=== PATIENT | male | born 1995 ===

== ENCOUNTER 2018-08-14 20:50 | Emergency (ER) | payer SELFPAY ==
[2018-08-14 21:18] VITALS: BP 122/64; PULSE 69; RESP 19; TEMP 98.4; O2SAT 99
--- NOTE | 2018-08-14 21:28 | ED PDOC ---
HPI: CCC, URI, Sore Throat Time Seen by Provider: 08/14/18 21:16 Chief Complaint (Nursing): Chest Pain Chief Complaint (Provider): Cough, Congestion, Chest Pain History Per: Patient History/Exam Limitations: no limitations Onset/Duration Of Symptoms: Days (x3) Current Symptoms Are (Timing): Still Present Associated Symptoms: Cough, Sputum, Nasal Congestion Additional Complaint(s): 22 year old male presents to the ED with complaining of productive cough and congestion, associated with chest pain for 3 days. Cough is productive of yellow sputum. Otherwise he denies any fever, chills, SOB, nausea, vomiting, dizziness, or other associated symptoms. Patient reports PMHx of asthma, but ran out of inhaler and denies taking any medications for symptom relief prior to arrival. PMD: None Past Medical History Reviewed: Historical Data, Nursing Documentation, Vital Signs Vital Signs: Last Vital Signs Temp 98.4 F 08/14/18 21:16 Pulse 69 08/14/18 21:16 Resp 19 08/14/18 21:16 BP 122/64 08/14/18 21:16 Pulse Ox 99 08/14/18 21:16 - Medical History PMH: Asthma - Family History Family History: States: Unknown Family Hx - Immunization History Hx Tetanus Toxoid Vaccination: No Hx Influenza Vaccination: No Hx Pneumococcal Vaccination: No - Home Medications Home Medications: Ambulatory Orders Medication Instructions Recorded Albuterol HFA [Ventolin HFA 90 2 puff IH [id number] #0 puff 09/11/14 mcg/actuation (8 g)] Albuterol Sulfate [Albuterol 3 ml IH Q4 PRN #30 thom 09/11/14 Sulfate 2.5mg/3 ml 0.083%] Amoxicillin 500 mg PO Q8 #30 cap 02/27/15 Albuterol HFA [Ventolin HFA 90 2 puff IH Q4H #1 puff 08/14/18 mcg/actuation (8 g)] Azithromycin [Zithromax] 250 mg PO DAILY #6 tab 08/14/18 Naproxen [Naprosyn] 500 mg PO Q12H #20 tab 08/14/18 - Allergies Allergies/Adverse Reactions: Allergies Allergy/AdvReac Type Severity Reaction Status Date / Time No Known Allergies Allergy Verified 08/14/18 21:18 Review of Systems ROS Statement: Except As Marked, All Systems Reviewed And Found Negative Constitutional: Negative for: Fever, Chills ENT: Positive for: Nose Congestion Cardiovascular: Positive for: Chest Pain Respiratory: Positive for: Cough, Sputum. Negative for: Shortness of Breath Gastrointestinal: Negative for: Nausea, Vomiting Neurological: Negative for: Weakness, Dizziness Physical Exam - Reviewed Nursing Documentation Reviewed: Yes Vital Signs Reviewed: Yes - Physical Exam Appears: Positive for: Non-toxic, No Acute Distress Head Exam: Positive for: ATRAUMATIC, NORMOCEPHALIC Skin: Positive for: Normal Color, Warm, Dry Eye Exam: Positive for: Normal appearance ENT: Positive for: Nasal Congestion Neck: Positive for: Normal, Painless ROM Cardiovascular/Chest: Positive for: Regular Rate, Rhythm, Chest Non Tender. Negative for: Murmur Respiratory: Positive for: Rhonchi (scattered), Wheezing (scattered). Negative for: Respiratory Distress Pulses-Radial (L): 2+ Pulses-Radial (R): 2+ Gastrointestinal/Abdominal: Positive for: Normal Exam, Soft. Negative for: Tenderness Neurologic/Psych: Positive for: Alert, Oriented (x3) - ECG O2 Sat by Pulse Oximetry: 99 (RA) Pulse Ox Interpretation: Normal Medical Decision Making Medical Decision Making: Initial Plan: Chest x-ray ordered. -- Scribe Attestation: Documented by Delaney Allen, acting as a scribe for Dr. Lai Tyson MD. Provider Scribe Attestation: All medical record entries made by the Scribe were at my direction and personally dictated by me. I have reviewed the chart and agree that the record accurately reflects my personal performance of the history, physical exam, medical decision making, and the department course for this patient. I have also personally directed, reviewed, and agree with the discharge instructions and disposition. Disposition - Clinical Impression Clinical Impression: Bronchitis - Patient ED Disposition Is Patient to be Admitted: No Counseled Patient/Family Regarding: Studies Performed, Diagnosis, Need For Followup, Rx Given - Disposition Referrals: [facility] [Outside] Disposition: Routine/Home Disposition Time: 22:05 Condition: FAIR Prescriptions: Albuterol HFA [Ventolin HFA 90 mcg/actuation (8 g)] 2 puff IH Q4H #1 puff Azithromycin [Zithromax] 250 mg PO DAILY #6 tab Naproxen [Naprosyn] 500 mg PO Q12H #20 tab Instructions: Acute Bronchitis Forms: [employer] ([place]), [facility] ED School/Work Excuse
--- NOTE | 2018-08-15 10:21 | RAD ---
Date of service: 08/14/2018 HISTORY: cough COMPARISON: No prior. TECHNIQUE: Chest PA and lateral FINDINGS: LUNGS: No active pulmonary disease. PLEURA: No significant pleural effusion identified. No pneumothorax apparent. CARDIOVASCULAR: Normal. OSSEOUS STRUCTURES: No significant abnormalities. VISUALIZED UPPER ABDOMEN: Normal. OTHER FINDINGS: None. IMPRESSION: No acute cardiopulmonary disease appreciated.
== END 2018-08-14 22:20 | disposition home or self-care (01) ==
LOC: H.ER 20:50
DX: J40 Bronchitis, not specified as acute or chronic (principal)